=== PATIENT | male | born 1975 | race Native Hawaiian/Other Pacific Islander ===

== ENCOUNTER 2025-08-23 12:58 | Outpatient (AMB) | payer OTHER, SELFPAY ==
--- NOTE | 2025-08-23 13:03 | MHC.OFFVIS ---
Intake Visit Reasons: ENP- Neuropathic pain in both feet HPI Comments Details: The patient is a 50 year old individual presenting with a long-standing burning sensation in the hands and feet. The patient describes the sensation as annoying but not significantly painful. Previously, the patient was taking gabapentin, which was initially helpful, but its efficacy has diminished over the last few months. The dosage was increased to 300 mg, but the medication is no longer helping. The patient has a medical history of hypertension, for which the patient takes medication. The patient denies any history of diabetes, cancer, or alcohol use. Review of Systems Narrative - Neurological: Reports a chronic burning sensation in the hands and feet. - Cardiovascular: Reports a history of hypertension. - Endocrine: Denies a history of diabetes. - Social History: Denies alcohol use. - Oncologic: Denies a history of cancer. Physical Exam Neuro Other: Mental Status: Alert and oriented to person, place, and time. Normal attention. Normal spontaneous speech, fluency, and comprehension. No obvious issues with mood and memory. Affect is appropriate. Cranial Nerves: CN II: Visual caba full to confrontation, visual acuity intact. CN III, IV, : Pupils equal, round, reactive to light and accommodation. Extraocular movements are normal. CN V: Facial sensation is normal. CN VII: Facial movements symmetrical. CN VIII: Hearing intact to bedside conversation is normal. CN IX, X: Palate elevates symmetrically. CN XI: Shoulder shrug and head turn symmetrical. CN XII: Tongue midline without atrophy or fasciculations. Motor: Bulk and tone normal in all extremities. No significant muscle weakness in arms and legs. No drift. Reflexes: Deep tendon reflexes are trace and knees and absent in ankles with a flexor plantars Coordination: [id number] is okay. Gait and Station: No obvious gait abnormality. No ataxia or instability. Sensory: Vibratory sensation is present in toes but diminished and joint position sensation is diminished. Extrapyramidal: Full facial expressions and blinking. No rigidity. Movements are appropriate with no tremor or abnormality. Speech: Normal; no dysarthria or tremor. Assessment & Plan Assessment & Plan (1) Peripheral neuropathy: Comment: Meds tried: Gabapentin Code(s): G62.9 - Polyneuropathy, unspecified Category: Medical Qualifiers: Peripheral neuropathy type: polyneuropathy, unspecified Qualified Code(s): G62.9 - Polyneuropathy, unspecified Plan Impression: Chronic peripheral neuropathy Recommendations: 1. Try duloxetine 20 mg twice a day instead of gabapentin 2. Some laboratories to rule out treatable causes 3. EMG nerve conduction study right arm or leg for classification and grading of neuropathy 4. No alcohol use Orders: Orders NE nerve conduction velocity Today G6.9 - Polyneuropathy, unspecified NE electromyogram (EMG) Today G62.9 - Polyneuropathy, unspecified Immunofixation Pnl, Serum Today G6.9 - Polyneuropathy, unspecified Lyme IgG/IgM w/reflex to WB Today G62.9 - Polyneuropathy, unspecified Vitamin B12 and Folate Today G62.9 - Polyneuropathy, unspecified Medications: New duloxetine 20 mg PO BID 180 caps 0RF Coding Level of Care Code New Pt Level 3 (12399) Diagnoses Peripheral polyneuropathy G62.9 Peripheral neuropathy type: polyneuropathy, unspecified
--- OUTSIDE RECORDS SUMMARY | 2025-08-23 15:59 | XMS_ITS | Encounter Summary ---
Author Organization [facility] Address [address] [place] [address] Care Team Providers Care Pad Assembler Name Role Phone Ke Kimbrough MD Primary Care Pr ovider Encounter Details Date Type Department Care Team ([facility] Contact Info) Description 07/24/2025 Results Follow-Up Gastroenterology - [place] [address] [facility] [address] [facility] [address] [place] [id number] Dena Vila, [place] [address] [facility] [address] [place] [address] Social History Tobacco Use Types Packs/Day Years Used Date Smoking Tobacco: Every Day Cigarettes 0.5 30.9 Started: 09/28/1994 Smokeless Tobacco: Never Alcohol Use Standard Drinks/Week Comments No 0 (1 standard drink = 0.6 oz pur e alcohol) Housing Instability Answer Date Recorde d Are you worried that in the next 2 months you may not have stable housing? No 01/01/2025 Food Access & Nutrition Answer Date Rec orded Do you have access to a vari ety of food including fruits and vegetables? Yes 01/01/2025 Access to Healthcare Answer Date Record ed Within the last 3 months, ho w many times did you visit the emergency department for your medical care? 0 01/01/2025 Health Literacy Answer Date Recorded How often do you need to hav e someone help you when you read instructions, pamphlets, or other written material from your doctor or pharmacy? Sometimes 01/01/2025 Caregiver: How often do you need to have someone help you when you read instructions, pamphlets, or other written material from your doctor or pharmacy? Not on file 01/01/2025 Financial Risk Answer Date Recorded How hard is it for you to pa y for the very basics like food, housing, medical care, and air conditioning / heating? Not very hard 01/01/2025 Transportation Answer Date Recorded Has the lack of transportati on kept you from meetings, work, or from getting things needed for daily living? No Has the lack of transportati on kept you from medical appointments or from getting medications? No 01/01/2025 Social Isolation Answer Date Recorded How often do you feel lonely or isolated from th ose around you? Never 01/01/2025 Food Risk Answer Date Recorded Within the past 12 months we worried whether our food would run out before we got money to buy more. Never true 01/01/2025 Within the past 12 months th e food we bought just didn't last and we didn't have money to get more. Never true 01/01/2025 Dependent Care Answer Date Recorded Do you need help finding or paying for care for your loved ones. For example, child attendant or elderly care for an older adult? No 01/01/2025 Education Answer Date Recorded Do you think completing more education or training, like finishing a GED, going to college, or learning a trade, would be helpful for you? No 01/01/2025 Employment and Income Answer Date Recor ded During the last four weeks, have you been actively looking for work? No 01/01/2025 Living Situation Answer Date Recorded What is your living situation? Unrecognized valu e 01/01/2025 Interpersonal Safety Answer Date Record ed Physical Abuse Unrecognized value 03/01/2025 Verbal Abuse Unrecognized value 03/01/2025 Sex and Gender Information Value Date Recorded Sex Assigned at Male 04/13/2024 5:41 PM EDT Legal Sex Male 5:40 AM EST Gender Identity Male 04/13/2024 5:41 PM EDT Sexual Orientation Not on file documented as of this encounter Progress Notes * Diana Kingsley - 07/25/2025 10:56 AM EDT Patients spouse called back for results. * Anita Ochoa - 07/25/2025 8:33 AM EDT Pt is calling back documented in this encounter Plan of Treatment Upcoming Encounters Date Type Department Care Team (Late st Contact Info) Description 10/03/2025 1:00 PM EST Office Visit [facility] Hematology Oncology [address] [place] [address] May Vasquez PA [address] [place] [address] 10/12/2025 11:30 AM EST Office Visit Adult Medicine [address] [phone] Carlee Villar PA [address] [place] [address] documented as of this encounter Visit Diagnoses Not on filedocumented in this encounter Additional Health Concerns Assessment Noted Time PHQ-9 Depression Total Score: 0 01/02/20 25 8:27 PM EDT documented as of this encounter Care Teams Pad Assembler Relationship Specialty Start Date End Date Ke Kimbrough MD [address] [facility], [place] PCP - General Internal Medicine 05/16/22 documented as of this encounter
--- OUTSIDE RECORDS SUMMARY | 2025-08-23 15:59 | XMS_ITS | Clinical Summary ---
Author Organization [address] Address [address] [place] [address] Phone Care Team Providers Care [employer] Vice President Name Role Phone Ke Kimbrough MD Primary Care Pr ovider Allergies No known active allergies Medications CRANBERRY EXTRACT-VITAMIN C ORAL Take by mouth daily. Active multivitamin (DAILY VITAMIN ORAL) VITAMIN D OR Take by mouth daily. Active aspirin ([place]) 81 mg capsule Take by mouth daily. Active amLODIPine (NORVASC) 10 mg tabletIndications: Essential hypertension Take 1 tablet (10 mg total) by mouth at bedtime. 90 each 1 5 Active coenzyme Q-10 30 mg capsuleIndications :Mixed hyperlipidemia TAKE 1 CAPSULE BY MOUTH EVERYDAY AT BEDTIME 90 capsule 1 5 Active nicotine polacrilex (COMMIT) 2 mg lozengeIndications :Tobacco use disorder, mild, in early remission Dissolve 1 lozenge (2 mg total) in the mouth every 4 (four) hours if needed for smoking cessation. 360 lozenge 1 5 Active gabapentin (NEURONTIN) 100 mg capsuleIndications :Neuropathic pain of both feet Take with 300mg for total of 400mg daily 90 each 1 5 Active gabapentin (NEURONTIN) 300 mg capsuleIndications :Neuropathic pain of both feet Take 1 capsule (300 mg total) by mouth at bedtime. 90 capsule 1 5 Active rosuvastatin (CRESTOR) 5 mg tabletIndications: Mixed hyperlipidemia Take 1 tablet (5 mg total) by mouth at bedtime. 90 each 1 5 01/09/20 26 Active metoprolol succinate (TOPROL-XL) 25 mg 24 hr tabletIndications: Essential hypertension,Sinus tachycardia Take 1 tablet (25 mg total) by mouth 1 (one) time each day. Do not crush or chew. 90 each 1 5 01/09/20 26 Active tirzepatide, weight loss, (Zepbound) 2.5 mg/0.5 mL injectionIndicatio ns:Obesity (BMI 30.0-34.9) Inject 0.5 mL (2.5 mg total) under the skin every 7 (seven) days. 2 mL 5 08/11/20 25 Active Problems Problem Noted Date Diagnosed Date Neuropathic pain of both feet 07/12/2025 Assessment & Plan (07/12/2025 1:20 PM EDT): EMG testing is ordered for evaluation of the feet Will trial increased dose of gabapentin from 300 to 400 mg nightly Orders: EMG; Future gabapentin (NEURONTIN) 100 mg capsule; Take with 300mg for total of 400mg daily gabapentin (NEURONTIN) 300 mg capsule; Take 1 capsule (300 mg total) by mouth at bedtime. Elevated liver enzymes 02/07/2025 Sinus pause 01/17/2025 Sinus tachycardia 01/02/2025 Assessment & Plan (07/12/2025 1:20 PM EDT): Well-controlled. Heart rate today was 91. Continue metoprolol 25 mg daily Orders: metoprolol succinate (TOPROL-XL) 25 mg 24 hr tablet; Take 1 tablet (25 mg total) by mouth 1 (one) time each day. Do not crush or chew. Assessment & Plan (02/06/2025 11:35 AM EDT): Well-controlled. Continue metoprolol 25 mg daily Assessment & Plan (01/02/2025 2:40 PM EDT): Holter monitor results are as above. He is on metoprolol 25 mg daily which has been helpful for palpitations. Pending cardiology evaluation. Referral approval with information to schedule an appointment with cardiology was printed so he could call to make an appointment Heart burn 01/02/2025 Assessment & Plan (07/12/2025 1:20 PM EDT): No longer using omeprazole. Feels he doesn't need the medication. This was discontinued Assessment & Plan (01/02/2025 2:40 PM EDT): Discussed lifestyle modifications (e.g. weight loss, waiting 2-3 hrs after eating before going to bed, sleeping with head of bed elevated, stress reduction), dietary modifications (e.g. avoiding fatty foods, caffeine, chocolate, spicy foods, carbonated drinks and peppermint), avoid NSAIDs/ASA. Will check H. pylori testing. If negative. Will send omeprazole 20 mg to use as needed Orders: Helicobacter pylori breath test; Future Obesity (BMI 30.0-34.9) 10/31/2024 Assessment & Plan (07/12/2025 1:20 PM EDT): Counseled on the possible side effects of weight loss medication. Advised to make some dietary changes and to increase his exercise/start exercising. Will trial Zepbound weekly. He will contact his insurance to find out what medications are covered for obesity Follow-up in 3 months Orders: tirzepatide, weight loss, (Zepbound) 2.5 mg/0.5 mL injection; Inject 0.5 mL (2.5 mg total) under the skin every 7 (seven) days. Hepatic steatosis 04/28/2024 Assessment & Plan (07/12/2025 1:20 PM EDT): Following with GI. Advised to follow a Mediterranean diet Will benefit from weight loss Assessment & Plan (10/31/2024 1:47 PM EST): Continue to avoid alcohol and watch diet Vitamin D insufficiency 04/28/2024 Assessment & Plan (10/31/2024 1:47 PM EST): Continue vitamin D daily Orders: cholecalciferol (VITAMIN D-3) 50 mcg (2,000 unit) capsule; Take 1 capsule (2,000 Units total) by mouth 1 (one) time each day. Prediabetes 01/20/2023 Assessment & Plan (07/12/2025 1:20 PM EDT): Lifestyle counseling provided Orders: Hemoglobin A1c; Future Basic metabolic panel; Future Assessment & Plan (10/31/2024 1:47 PM EST): Due for labs which are ordered. Orders: Hemoglobin A1c; Future Comprehensive metabolic panel; Future Tobacco use disorder, mild, in early remission 0 01/19/2023 Assessment & Plan (07/12/2025 1:20 PM EDT): Continue with lozenges as needed Orders: nicotine polacrilex (COMMIT) 2 mg lozenge; Dissolve 1 lozenge (2 mg total) in the mouth every 4 (four) hours if needed for smoking cessation. Assessment & Plan (01/02/2025 2:40 PM EDT): Requesting refill of nicotine lozenge which he uses to help with cigarette cravings. With assistance Orders: nicotine polacrilex (COMMIT) 2 mg lozenge; Dissolve 1 lozenge (2 mg total) in the mouth every 4 (four) hours if needed for smoking cessation. Assessment & Plan (10/31/2024 1:47 PM EST): Switched from nicotine gum to nicotine lozenge per request Orders: nicotine polacrilex (COMMIT) 2 mg lozenge; Dissolve 1 lozenge (2 mg total) in the mouth every 4 (four) hours if needed for smoking cessation. Hyperlipidemia 07/22/2022 Assessment & Plan (07/12/2025 1:20 PM EDT): given the continued leg cramping even on the coenzyme Q 10, will decrease rosuvastatin from 10 mg to 5 mg nightly Orders: Lipid panel with reflex to direct LDL; Future Basic metabolic panel; Future rosuvastatin (CRESTOR) 5 mg tablet; Take 1 tablet (5 mg total) by mouth at bedtime. Assessment & Plan (02/06/2025 11:35 AM EDT): Stable. Continue Crestor Orders: rosuvastatin (CRESTOR) 10 mg tablet; Take 1 tablet (10 mg total) by mouth 1 (one) time each day. Assessment & Plan (10/31/2024 1:47 PM EST): Will switch from atorvastatin 20 mg nightly to Crestor 10 mg nightly to see if this helps with the side effects of temporary muscle cramping. He will take this medication with coenzyme Q 10. Orders: rosuvastatin (CRESTOR) 10 mg tablet; Take 1 tablet (10 mg total) by mouth 1 (one) time each day. coenzyme Q-10 30 mg capsule; Take 1 capsule (30 mg total) by mouth at bedtime. Kidney stones 05/10/2021 Assessment & Plan (07/12/2025 1:20 PM EDT): Continue follow-up with [facility] urology. Plan is for repeat renal ultrasound in 2 months Essential hypertension 09/06/2020 Assessment & Plan (07/12/2025 1:20 PM EDT): Well-controlled. Continue amlodipine 10 mg nightly Orders: Basic metabolic panel; Future metoprolol succinate (TOPROL-XL) 25 mg 24 hr tablet; Take 1 tablet (25 mg total) by mouth 1 (one) time each day. Do not crush or chew. Assessment & Plan (02/06/2025 11:35 AM EDT): Well-controlled. Continue amlodipine Orders: amLODIPine (NORVASC) 10 mg tablet; Take 1 tablet (10 mg total) by mouth at bedtime. Assessment & Plan (01/02/2025 2:40 PM EDT): Blood pressure is well-controlled. Continue amlodipine 10 mg daily and metoprolol 25 mg daily Orders: metoprolol succinate (TOPROL-XL) 25 mg 24 hr tablet; Take 1 tablet (25 mg total) by mouth 1 (one) time each day. Do not crush or chew. Assessment & Plan (10/31/2024 1:47 PM EST): Poorly controlled. Increase amlodipine to 10 mg nightly. Blood pressure monitor prescribed. He will bring blood pressure log with daily blood pressure readings to visit in 1 month for follow-up Orders: amLODIPine (NORVASC) 10 mg tablet; Take 1 tablet (10 mg total) by mouth at bedtime. Blood pressure monitor Encounters Date Type Department Care Team Description 07/24/2025 Results Follow-Up Gastroenterology - [place] [facility] [address] [place] [address] Dena Vila NP 07/12/2025 12:30 PM EDT Office Visit Adult [address] [phone] Ke Kimbrough MD Essential hypertension (Primary Dx); Mixed hyperlipidemia; Prediabetes; Sinus tachycardia; Obesity (BMI 30.0-34.9); Kidney stones; Heart burn; Neuropathic pain of both feet; Elevated ferritin; Hepatic steatosis; Other hydronephrosis; Tobacco use disorder, mild, in early remission 07/12/2025 Results Follow-Up Adult [address] [phone] Ke Kimbrough MD 07/11/2025 Lab Requisition [facility] - Main Lab [address] [facility] [place] [address] Gokul Broussard PA Calculus of kidney from Last 3 Months Immunizations Immunization Administration Dates Next Due Influenza Quadravalent, MDCK , 0.5ml, preservative free (Flucelvax) 6mo and older 07/31/2024 Influenza Quadravalent, MDCK , 0.5ml, with preservative (Flucelvax) 6mo and older 07/15/2023,07/16/2022,06/25/2021,2019 Influenza, Unspecified 07/14/2022 Tdap Tetanus diptheria acell ular pertussis (Boostrix; Adacel) 7yo and older 11/20/2019 Surgical History Surgery Date Site/Laterality Comments LITHOTRIPSY PROCEDURE: HISTORICAL LITHOTRIPSY Medical History Medical History Date Comments Kidney stones DX:Kidney stones HTN (hypertension) DX:HTN (hyper tension) Hyperlipidemia Family History Medical History Relation Name Comments Stroke Brother 1 htn Brother 1 Hypertension Father Stroke Father Nephrolithiasis Maternal Grandfather Hypertension Mother Relation Name Status Comments Brother 1 Alive Brother 2 Alive Brother 3 Alive Brother 4 Alive Father Alive Maternal Grandfather Maternal Grandmother Mother Alive Paternal Grandfather Paternal Grandmother Sister 1 Alive Sister 2 Alive Social History Tobacco Use Types Packs/Day Years Used Date Smoking Tobacco: Every Day Cigarettes 0.5 30.9 Started: 09/28/1994 Smokeless Tobacco: Never Tobacco Cessation:Ready to Q uit: Yes; Counseling Given: Yes Alcohol Use Standard Drinks/Week Comments No 0 [...] for your loved ones. For example, child caregiver private home or elderly care for an older adult? [...] PM EDT Sexual Orientation Not on file Obstetrics History Last Filed Vital Signs Vital Sign Reading Time Taken Comments Blood Pressure 126/67 07/12/2025 12:21 PM EDT Pulse 91 07/12/2025 12:21 PM EDT Temperature 36.9 C (98.4 F) 07/12/2025 12:21 PM EDT Respiratory Rate 15 07/12/2025 12:2 1 PM EDT Oxygen Saturation 97% 07/12/2025 12: 21 PM EDT Inhaled Oxygen Concentration - - Weight 98.3 kg (216 lb 12.8 oz) 025 12:21 PM EDT Height 172.7 cm (5' 8 ) 07/12/2025 12:2 1 PM EDT Body Mass Index 32.96 07/12/2025 12:21 PM EDT Plan of Treatment Upcoming Encounters Date Type Department Care Team (Late st Contact Info) Description 10/03/2025 1:00 PM EST Office Visit [facility] Hematology Oncology [address] [place] [phone] May Vasquez PA [address] [place] [address] 10/12/2025 11:30 AM EST Office Visit Adult Medicine [address] [phone] Carlee Villar PA [address] [place] [address] Health Maintenance Due Date Last Done Comments Pneumococcal Vaccine: 50+ Years (1 of 2 - PCV) 1994 HIV Screening 09/06/2022 Zoster Vaccines (1 of 2) 2025 COVID-19 Vaccine ( - season) 2025 09/16/2021, 03/05/2021, 02/05/2021 Social Influencers of Health Screening 01/01/2026 01/01/2025 Hypertension/CHF/CAD Annual BMP Blood Test 07/21/2026 07/21/2025, 02/06/2025, 01/24/2025, Additional history exists DTaP,Tdap,and Td Vaccines (2 - Td or Tdap) 11/20/2029 11/20/2019 Colorectal Cancer Screening: Colonoscopy 03/01/2030 03/01/2025 Cholesterol Screening (Lipid Panel) 07/12/2030 07/12/2025, 04/27/2024, 04/27/2024 RSV Immunization Adult Patients (1 - 1-dose 75+ series) 2050 Depression Screening Completed 01/01/2025 Hepatitis C Screening Completed 04/11/2025, 024 Influenza Vaccine Completed 07/01/2025, , 07/31/2024, Additional history exists HIB Vaccines Aged Out No longer eligi ble based on patient's age to complete this topic HPV Vaccines Aged Out No longer eligi ble based on patient's age to complete this topic Hepatitis A Vaccines Discontinued Hepatitis B Vaccines Discontinued IPV Vaccines Aged Out No longer eligi ble based on patient's age to complete this topic MMR Vaccines Aged Out No longer eligi ble based on patient's age to complete this topic Meningococcal ACWY Vaccine Aged Out N o longer eligible based on patient's age to complete this topic Meningococcal B Vaccine Aged Out No l onger eligible based on patient's age to complete this topic RSV Immunization Patients Under 20 months Aged Out No longer eligible based on patient's age to complete this topic Varicella Vaccines Aged Out No longer eligible based on patient's age to complete this topic Procedures Procedure Name Priority Date/Time Associated Diagnosis Comments BASIC METABOLIC PANEL Routine 07/21/2025 8:27 AM EDT Essential hypertension Mixed hyperlipidemia Prediabetes HEPATIC FUNCTION PANEL Routine 8:27 AM EDT Elevated liver enzymes HEMOCHROMATOSIS MUTATION Routine 07/12/2025 1:23 PM EDT Elevated liver enzymes Elevated ferritin HEMOGLOBIN A1C Routine 07/12/2025 1:23 PM EDT Prediabetes LIPID PANEL WITH REFLEX TO DIRECT LDL Routine 07/12/2025 1:23 PM EDT Mixed hyperlipidemia FERRITIN Routine 07/12/2025 1:23 PM EDT Elevated ferritin STONE ANALYSIS Routine 07/11/2025 12:00 AM EDT Calculus of kidney HEPATITIS C ANTIBODY Routine 04/11/2025 10:51 AM EDT Elevated liver enzymes Hepatic steatosis COLONOSCOPY Routine 03/01/2025 12:29 PM EDT Colon cancer screening from Last 3 Months or Most Recently Relevant to Health Maintenance Results * (ABNORMAL) Hepatic function panel (07/21/2025 8:27 AM EDT) Total Protein 7.4 6.0 - 8.0 g/dL LAB CHEMISTRY METHOD 07/21/2025 11:01 AM EDT [facility] Albumin 4.3 3.2 - 5.0 g/dL LAB CHEMISTRY METHOD 07/21/2025 11:01 AM EDT [facility] Total Bilirubin 1.4 0.0 - 1.4 mg/dL LAB CHEMISTRY METHOD 07/21/2025 11:01 AM [facility] Bilirubin, Direct 0.4(H) 0.0 - 0.3 mg/dL LAB CHEMISTRY METHOD 07/21/2025 11:01 AM [facility] Bilirubin, Indirect 1.0 0.0 - 1.1 mg/dL LAB CHEMISTRY METHOD 07/21/2025 11:01 AM [facility] ALT (SGPT) 74(H) 10 - 60 unit/L LAB CHEMISTRY METHOD 07/21/2025 11:01 AM [facility] AST (SGOT) 36 10 - 42 unit/L LAB CHEMISTRY METHOD 07/21/2025 11:01 AM [facility] Alkaline Phosphatase 104 42 - 121 unit/L LAB CHEMISTRY METHOD 07/21/2025 11:01 AM [facility] Blood Venous blood specimen / Unknown Venipuncture / Unknown 07/21/2025 8:27 AM EDT 07/21/2025 8:27 AM EDT us Dena Vila NP LAB BLOOD ORDERABLES Final Resu lt [facility] [address] [place] [address], * Basic metabolic panel (07/21/2025 8:27 AM EDT) Sodium 137 133 - 145 mmol/L LAB CHEMISTRY METHOD 07/21/2025 10:51 AM [facility] Potassium 4.4 3.5 - 5.5 mmol/L LAB CHEMISTRY METHOD 07/21/2025 10:51 AM [facility] Chloride 104 96 - 110 mmol/L LAB CHEMISTRY METHOD 07/21/2025 10:51 AM [facility] CO2 28 21 - 32 mmol/L LAB CHEMISTRY METHOD 07/21/2025 10:51 AM [facility] Anion Gap 5 3 - 11 LAB CHEMISTRY METHOD 07/21/2025 10:51 AM [facility] Glucose 100 70 - 100 mg/dL LAB CHEMISTRY METHOD 07/21/2025 10:51 AM [facility] BUN 12 5 - 25 mg/dL LAB CHEMISTRY METHOD 07/21/2025 10:51 AM [facility] Creatinine 1.03 0.70 - 1.30 mg/dL LAB CHEMISTRY METHOD 07/21/2025 10:51 AM [facility] eGFR 88 >=60 mL/min/1. 73m2 LAB CHEMISTRY METHOD 07/21/2025 10:51 AM [facility] Comment:Calculation based on the Chronic Kidney Disease Epidemiology Collaboration (CKD-EPI) equation refit without adjustment for race. BUN/Creatinine Ratio 11.7 LAB CHEMISTRY METHOD 07/21/2025 10:51 AM [facility] Calcium 9.5 8.5 - 10.5 mg/dL LAB CHEMISTRY METHOD 07/21/2025 10:51 AM [facility] Blood Venous blood specimen / Unknown Venipuncture / Unknown 07/21/2025 8:27 AM EDT 07/21/2025 8:27 AM EDT us Ke Kimbrough MD LAB BLOOD ORDERA BLES Final Result [facility] [address] [place] [address], * Lipid panel with reflex to direct LDL (07/12/2025 1:23 PM EDT) Cholesterol 126 0 - 200 mg/dL LAB CHEMISTRY METHOD 07/12/2025 4:33 PM EDT [facility] Triglycerides 82 0 - 150 mg/dL LAB CHEMISTRY METHOD 07/12/2025 4:33 PM EDT [facility] HDL 75 >=40 mg/dL LAB CHEMISTRY METHOD 07/12/2025 4:33 PM EDT [facility] LDL Calculated 35 0 - 100 mg/dL LAB CHEMISTRY METHOD 07/12/2025 4:33 PM EDT [facility] Comment:Estimated LDL Calcul ated using equation: Total cholesterol - HDL cholesterol - (Triglycerides/5) VLDL Cholesterol Huey 16.4 mg/dL LAB CHEMISTRY METHOD 07/12/2025 4:33 PM EDT [facility] Non HDL Chol. (LDL+VLDL) 51 <145 mg/dL LAB CHEMISTRY METHOD 07/12/2025 4:33 PM EDT [facility] Chol/HDL Ratio 1.7 0.0 - 4.4 LAB CHEMISTRY METHOD 07/12/2025 4:33 PM EDT [facility] Blood Venous blood specimen / Unknown Venipuncture / Unknown 07/12/2025 1:23 PM EDT 07/12/2025 1:23 PM EDT Ke Kimbrough MD LAB BLOOD ORDERA BLES Final Result [facility] [address] [place] [address], * Hemochromatosis mutation (07/12/2025 1:23 PM EDT) Hereditary Hemochromatosis See Below 07/23/2025 4:36 AM EDT [facility] Comment: RESULT: NEGATIVE Interpretation: DNA testing indicates that this individual is negative for the C282Y and H63D pathogenic variants in the HFE gene. This negative result significantly reduces the likelihood of hereditary hemochromatosis (HH) in this individual. However, it does not rule out the presence of other pathogenic variants within the HFE gene or a diagnosis of HH. The risk of this individual to carry an HFE pathogenic variant other than those tested in this assay depends greatly on family and clinical history as well as ethnicity. This assay does not test for other primary or secondary iron overload disorders. Laboratory results and submitted clinical information reviewed by Alysha Love, PhD, [facility]. DETAILED ASSAY INFORMATION: Hereditary hemochromatosis (HH) is an autosomal recessive disorder of iron metabolism that can result in iron overload and potential organ failure. It is one of the most common genetic disorders in individuals of - ancestry, with an estimated carrier frequency of 10%. HH is caused by pathogenic variants in the HFE gene. Most individuals with HH (60-90%) are homozygous for the C282Y pathogenic variant. A smaller percentage of affected individuals are either compound heterozygous for the C282Y and H63D pathogenic variants (3%-8%), or homozygous for the H63D pathogenic variant (approximately 1%). METHODOLOGY: This assay detects two pathogenic variants in the HFE gene, C282Y (NM 784194.2: c.845G>A, p.Asv583Gcg) and H63D (NM 324065.2: c.187C>G, p.Axq70Nfe), that are commonly associated with HH. These variants are detected by multiplex-polymerase chain reaction (PCR) amplification, followed by restriction enzyme digestion and capillary electrophoresis. LIMITATIONS: This assay does not detect other pathogenic variants in the HFE gene that may be associated with HH. Although rare, false positive or false negative results may occur. All results should be interpreted in the context of clinical findings, relevant history, and other laboratory data. Health care providers, please contact your local [email or web address] genetic counselor or call [phone] ( ) for assistance with the interpretation of these results. This test was developed and its analytical performance characteristics have been determined by [email or web address]. It has not been cleared or approved by FDA. This assay has been validated pursuant to the CLIA regulations and is used for clinical purposes. For more information, please refer to http://education.Si[employer].Simplificare/faq/hemochromatosis. (This link is being provided for informational/educational purposes only.) A portion of the testing was performed at [facility]. Reviewed and signed by Laboratory results and submitted clinical information reviewed by Alysha Love, PhD, [facility], Signed on 07/22/2025 at 23:46 Test Performed at: [email or web address] [address] [phone] Corrina Jj MD, PhD, [facility] Blood Venous blood specimen / Unknown Venipuncture / Unknown 07/12/2025 1:23 PM EDT 07/12/2025 1:23 PM EDT Dena Vila NP LAB MOLECULAR DIAGNOSTICS ORDER REMA Final Result [facility] [address] [place] [address] * Hemoglobin A1c (07/12/2025 1:23 PM EDT) Hemoglobin A1C 6.0 <6.5 % LAB CHEMISTRY METHOD 07/12/2025 8:33 PM EDT [facility] Mean Bld Glu Estim. 126 mg/dL LAB CHEMISTRY METHOD 07/12/2025 8:33 PM EDT [facility] Blood Venous blood specimen / Unknown Venipuncture / Unknown 07/12/2025 1:23 PM EDT 07/12/2025 1:23 PM EDT Ke Kimbrough MD LAB BLOOD ORDERA BLES Final Result [facility] [address] [place] [address], * (ABNORMAL) Ferritin (07/12/2025 1:23 PM EDT) Ferritin 677(H) 26 - 388 ng/mL LAB CHEMISTRY METHOD 07/12/2025 4:33 PM EDT [facility] Blood Venous blood specimen / Unknown Venipuncture / Unknown 07/12/2025 1:23 PM EDT 07/12/2025 1:23 PM EDT Ke Kimbrough MD LAB BLOOD ORDERA BLES Final Result Performing Organization Address City/[facility]/ZIP Co de Phone Number [facility] [address] [place] [address], [place] [phone] * Stone analysis (07/11/2025 12:00 AM EDT) Component(s) See below 07/17/2025 10:16 PM EDT [facility] Comment: 30% Calcium oxalate monohydrate (Whewellite) 70% Calcium oxalate dihydrate (Weddellite) Stone Weight 0.0445 g 07/17/2025 10:16 PM EDT [facility] Comment: This test was developed and its performance characteristics determined by [facility] in a manner consistent with CLIA requirements. This test has not been cleared or approved by the U.S. Food and Drug Administration. Test performed at [facility], [address], [place] [address] Lisbeth Toure MD, PhD - Bilingual Rec[employer]iter Calculus 07/11/2025 07/11/2025 2:5 8 PM EDT [facility] BODY FLUIDS AND S TOOLS ORDERABLES Final Result Performing Organization Address City/[facility]/ZIP Co de Phone Number [facility] [address] [place] [address] * Hepatitis C antibody (04/11/2025 10:51 AM EDT) Hepatitis C Antibody Negative Negative LAB CHEMISTRY METHOD 04/11/2025 6:58 PM EDT [facility] Blood Venous blood specimen / Unknown Venipuncture / Unknown 04/11/2025 10:51 AM EDT 04/11/2025 10:51 AM EDT Dena Vila DATABASE ENGINEER LAB BLOOD ORDERABLES Final Resu lt [facility] [address] [place] [address], * COLONOSCOPY Anesthesia - MAC; [facility] ENDOSCOPY (03/01/2025 12:29 PM EDT) Anatomical Region Laterality Modality Endoscopy 03/01/2025 12:1 0 PM EDT Impressions 03/01/2025 12:30 PM EDT - Three diminutive polyps in the transverse colon, removed with a jumbo cold forceps. Resected and retrieved. - The examination was otherwise normal on direct and retroflexion views. Recommendation: - Discharge patient to home. - Await pathology results. - Repeat colonoscopy in 5 years for surveillance. Narrative 03/01/2025 12:30 PM EDT [facility] Patient Name: Yossi Torres Procedure Date: 03/01/2025 12:10 PM Date of : 1975 Age: 50 Gender: Male Note Status: Finalized Attending MD: Giuliana Flowers MD, Procedure Date No Time: 03/01/2025 Procedure: Colonoscopy Indications: Screening for colorectal malignant neoplasm Providers: Giuliana Flowers MD Referring MD: Jeffrey Arzate DO Medicines: Monitored Anesthesia Care Complications: No immediate complications. Estimated blood loss: Minimal. Estimated Blood Loss: Estimated blood loss was minimal. Procedure: Pre-Anesthesia Assessment: - Prior to the procedure, a History and Physical was performed, and patient medications and allergies were reviewed. The patient is competent. The risks and benefits of the procedure and the sedation options and risks were discussed with the patient. All questions were answered and informed consent was obtained. Patient identification and proposed procedure were verified by the physician, the nurse, the asian studies program chair and the photocopier technician in the pre-procedure area in the endoscopy suite. Mental Status Examination: alert and oriented. Airway Examination: normal oropharyngeal airway and neck mobility. Respiratory Examination: clear to auscultation. CV Examination: normal. Prophylactic Antibiotics: The patient does not require prophylactic antibiotics. Prior Anticoagulants: The patient has taken no anticoagulant or antiplatelet agents. ASA Grade Assessment: III - A patient with severe systemic disease. After reviewing the risks and benefits, the patient was deemed in satisfactory condition to undergo the procedure. The anesthesia plan was to use monitored anesthesia care (MAC). Immediately prior to administration of medications, the patient was re-assessed for adequacy to receive sedatives. The heart rate, respiratory rate, oxygen saturations, blood pressure, adequacy of pulmonary ventilation, and response to care were monitored throughout the procedure. The physical status of the patient was re-assessed after the procedure. After I obtained informed consent, the scope was passed under direct vision. Throughout the procedure, the patient's blood pressure, pulse, and oxygen saturations were monitored continuously. The Olympus Colonoscope was introduced through the anus and advanced to the cecum, identified by appendiceal orifice and ileocecal valve. Findings: The perianal and digital rectal examinations were normal. Three sessile polyps were found in the transverse colon. The polyps were diminutive in size. These polyps were removed with a jumbo cold forceps. Resection and retrieval were complete. Estimated blood loss was minimal. The exam was otherwise without abnormality on direct and retroflexion views. Procedure Code(s): --- Professional --- 03485, Colonoscopy, flexible; with biopsy, single or multiple Diagnosis Code(s): --- Professional --- D12.3, Benign neoplasm of transverse colon (hepatic flexure or splenic flexure) CPT copyright 2020 [employer]. All rights reserved. The codes documented in this report are preliminary and upon hcc coders review may be revised to meet current compliance requirements. Giuliana Flowers MD 03/01/2025 12:30:36 PM This report has been signed electronically.Giuliana Flowers MD Number of Addenda: 0 Note Initiated On: 03/01/2025 12:10 PM Scope Withdrawal Time: 0 hours 11 minutes 54 seconds Scope In: 12:14:27 PM Scope Out: 12:28:24 PM Endoscopy Department at [facility] - [address] [place] [id number] Procedure Note Giuliana Flowers MD - 03/01/2025 [facility] Patient Name: Yossi Torres Procedure Date: 03/01/2025 12:10 PM Date of : 1975 Age: 50 Gender: Male Note Status: Finalized Attending MD: Giuliana Flowers MD, Procedure Date No Time: 03/01/2025 Procedure: Colonoscopy Indications: Screening for colorectal malignant neoplasm Providers: Giuliana Flowers MD Referring MD: Jeffrey Arzate DO Medicines: Monitored Anesthesia Care Complications: No immediate complications. Estimated blood loss: Minimal. Estimated Blood Loss: Estimated blood loss was minimal. Procedure: Pre-Anesthesia Assessment: - Prior to the procedure, a History and Physicalwas performed, and patient medications and allergieswere reviewed. The patient is competent. The risks and benefits of the procedure and the sedation optionsand risks were discussed with the patient. Allquestions were answered and informed consent was obtained. Patient identification and proposed procedure were verified by the physician, the nurse, theanesthetist and the photocopier technician in the pre-procedure area in the endoscopy suite. Mental Status Examination: alertand oriented. Airway Examination: normal oropharyngeal airway and neck mobility. Respiratory Examination: clear to auscultation. CV Examination: normal. Prophylactic Antibiotics: The patient does notrequire prophylactic antibiotics. Prior Anticoagulants: The patient has taken no anticoagulant or antiplatelet agents. ASA Grade Assessment: III - A patient with severe systemic disease. After reviewing the risksand benefits, the patient was deemed in satisfactory condition to undergo the procedure. The anesthesia plan was to use monitored anesthesia care (MAC). Immediately prior to administration of medications, the patient was re-assessed for adequacy to receive sedatives. The heart rate, respiratory rate, oxygen saturations, blood pressure, adequacy of pulmonary ventilation, and response to care were monitored throughout the procedure. The physical status ofthe patient was re-assessed after the procedure. After I obtained informed consent, the scope was passed under direct vision. Throughout theprocedure, the patient's blood pressure, pulse, and oxygen saturations were monitored continuously. TheOlympus Colonoscope was introduced through the anus and advanced to the cecum, identified by appendiceal orifice and ileocecal valve. Findings: The perianal and digital rectal examinations were normal. Three sessile polyps were found in the transverse colon. The polyps were diminutive in size. These polyps were removed with a jumbo cold forceps. Resection and retrieval were complete. Estimatedblood loss was minimal. The exam was otherwise without abnormality ondirect and retroflexion views. Procedure Code(s): --- Professional --- 07687, Colonoscopy, flexible; with biopsy, singleor multiple Diagnosis Code(s): --- Professional --- D12.3, Benign neoplasm of transverse colon (hepatic flexure or splenic flexure) CPT copyright 2020 [employer]. All rights reserved. The codes documented in this report are preliminary and upon hcc coders reviewmay be revised to meet current compliance requirements. Giuliana Flowers MD 03/01/2025 12:30:36 PM This report has been signed electronically.Giuliana Flowers MD Number of Addenda: 0 Note Initiated On: 03/01/2025 12:10 PM Scope Withdrawal Time: 0 hours 11 minutes 54 seconds Scope In: 12:14:27 PM Scope Out: 12:28:24 PM Endoscopy Department at [facility] - [address] [place] [id number] IMPRESSION: - Three diminutive polyps in the transverse colon, removed with a jumbo cold forceps. Resected and retrieved. - The examination was otherwise normal on directand retroflexion views. Recommendation: - Discharge patient to home. - Await pathology results. - Repeat colonoscopy in 5 years for surveillance. Jeffrey Arzate DO GI~PROCEDURE ORDERABLES Final Re sult from Last 3 Months or Most Recently Relevant to Health Maintenance Insurance [employer] Advance Directives * Full Code - Default (Latest Code Status on File) Date Activated Date Inactivated Comments 03/01/2025 12:56 PM 03/05/2025 3:18 AM This is order is used when code status has not been discussed with the patient, or code status is otherwise unknown/unconfirmed To update the patient's code status, place a code status order. Do not modify or discontinue any currently active code status orders. Care Teams Fixed Income Trading Vice President Relationship Specialty Start Date End Date Ke Kimbrough MD [address] [facility], [place] PCP - General Internal Medicine 05/16/22
--- OUTSIDE RECORDS SUMMARY | 2025-08-23 15:59 | XMS_ITS | Encounter Summary ---
Author Organization [facility] Address [address] [place] [address] Care Team Providers Care Custody Officer Name Role Phone Ke Kimbrough MD Primary Care Pr ovider Encounter Details Date Type Department Care Team (Late st Contact Info) Description 07/11/2025 Lab Requisition [facility] - Main Lab [address] [facility] [place] [address] Gokul Broussard, JERAMY [address] [place] [phone] Calculus of kidney Social History Tobacco Use Types Packs/Day Years [...] for your loved ones. For example, child life therapist or elderly care for an older adult? [...] on file documented as of this encounter Plan of Treatment Upcoming Encounters Date Type Department Care Team (Late st Contact Info) Description 10/03/2025 1:00 PM EST Office Visit [facility] Hematology Oncology [address] [place] [address] May Vasquez PA [address] [place] [address] 10/12/2025 11:30 AM EST Office Visit Adult Medicine [address] [phone] Carlee Villar PA [address] [place] [address] documented as of this encounter Procedures Procedure Name Priority Date/Time Associated Diagnosis Comments STONE ANALYSIS Routine 07/11/2025 12:00 AM EDT Calculus of kidney documented in this encounter Results * Stone analysis (07/11/2025 12:00 AM EDT) Component(s) See below 07/17/2025 10:16 PM EDT [facility] Comment: 30% Calcium oxalate monohydrate (Whewellite) 70% Calcium oxalate dihydrate (Weddellite) Stone Weight 0.0445 g 07/17/2025 10:16 PM EDT [facility] Comment: This test was developed and its performance characteristics determined by [facility] in a manner consistent with CLIA requirements. This test has not been cleared or approved by the U.S. Food and Drug Administration. Test performed at [facility], [address] , [place], [place] [id number] Lisbeth Toure MD, PhD - Parquetry Layer Calculus 07/11/2025 07/11/2025 2:5 8 PM EDT us [facility] BODY FLUIDS AND S TOOLS ORDERABLES Final Result [facility] [address] [place], [place] [id number] documented in this encounter Visit Diagnoses Diagnosis Calculus of kidney documented in this encounter Additional Health Concerns Assessment Noted Time PHQ-9 Depression Total Score: 0 01/02/20 25 8:27 PM EDT documented as of this encounter Care Teams Custody Officer Relationship Specialty Start Date End Date Ke Kimbrough MD [address] [place] [address] [place] [address] PCP - General Internal Medicine 05/16/22 documented as of this encounter
--- OUTSIDE RECORDS SUMMARY | 2025-08-23 16:00 | XMS_ITS | Encounter Summary ---
Author Organization [facility] Address [address] [place] [address] Care Team Providers Care Hair Or Beauty Salon Assistant Name Role Phone Ke Kimbrough MD Primary Care Pr ovider Encounter Details Date Type Department Care Team (Late st Contact Info) Description 07/12/2025 Results Follow-Up Adult Medicine [address] [phone] Ke Kimbrough MD [address] [place], [place] Social History Tobacco Use Types Packs/Day Years [...] care for your loved ones. For example, early childhood education coordinator or elderly care for an older adult? [...] 10/03/2025 1:00 PM EST Office Visit [facility] Hematology Oncology [address] [place] [address] May Vasquez PA [address] [place] [address] 10/12/2025 11:30 AM EST Office Visit Adult Medicine [address] [phone] Carlee Villar PA [address] [place] [address] documented as of this encounter Visit Diagnoses Not on filedocumented in this encounter Additional Health Concerns Assessment Noted Time PHQ-9 Depression Total Score: 0 01/02/20 25 8:27 PM EDT documented as of this encounter Care Teams Hair Or Beauty Salon Assistant Relationship Specialty Start Date End Date Ke Kimbrough MD [address] [facility], [place] PCP - General Internal Medicine 05/16/22 documented as of this encounter
== END 2025-08-23 13:26 | disposition home or self-care (01) ==
PROVIDERS: PCP Family Medicine; Visit Provider Psychiatry & Neurology Neurology
DX: G62.9 Polyneuropathy, unspecified (principal)
CPT/HCPCS: 99203

== ENCOUNTER 2025-08-23 12:58 | Outpatient (REF) | payer OTHER, SELFPAY ==
[2025-08-23 15:30] LABS: Vitamin B12 534 pg/mL (200-900)
[2025-08-23 16:03] LABS: Folate 8.3 ng/mL (> or = 4.0)
[2025-08-25 19:13] LABS: Lyme Abs Screen <0.90 index
== END 2025-08-23 12:59 | disposition home or self-care (01) ==
LOC: HO.LAB 12:58
PROVIDERS: PCP Family Medicine; Visit Provider Psychiatry & Neurology Neurology
DX: G62.9 Polyneuropathy, unspecified (principal); Z01.84 Encounter for antibody response examination
CPT/HCPCS: 36415; 82607; 82746; 82784; 86334; 86617; 86618

== ENCOUNTER 2025-09-12 13:39 | Outpatient (REF) | payer OTHER, SELFPAY ==
--- NOTE | 2025-09-12 14:09 | EMG_ITS ---
Chief complaint: Polyneuropathy Referred by:?Dr Botello Procedure done: Right upper and right lower extremities NCS/EMG Right median and ulnar motor studies were performed. Right tibial and peroneal motor studies were performed with F responses and tibial H-reflex. Right median and ulnar mixed sensory, superficial peroneal and sural sensory, and radial sensory studies were performed. Right median and lateral antecubital brachial sensory studies were also performed. Paraspinal muscles were tested with a needle. Findings: Motor studies did not reveal any significant abnormality. Median and ulnar mixed sensory studies, ortho digit sensory studies, radial study was normal. Superficial peroneal and sural studies were also normal. Antecubital brachial studies were normal. Right lateral mixed plantars study was absent while lift amplitude was diminished. Impression: No significant abnormality noted in right upper extremity. 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 Otherwise no significant abnormality noted. [place] [address] 2 extremities MTDD
--- OUTSIDE RECORDS SUMMARY | 2025-09-12 17:42 | XMS_ITS | Encounter Summary ---
Author Organization [facility] Address [address] [place] [address] Care Team Providers Care Wildlife Management Professor Name Role Phone Ke Kimbrough MD Primary Care Pr ovider Encounter Details Date Type Department Care Team (Late st Contact Info) Description 08/30/2025 Lab Requisition [facility] - Main Lab [address] [facility] [place] [address] Gokul Broussard, JERAMY [address] [place] [phone] Benign essential microscopic hematuria Social History Tobacco Use Types Packs/Day Years Used Date Smoking Tobacco: Every Day Cigarettes 0.5 31 Started: 09/28/1994 Smokeless Tobacco: Never Alcohol Use [...] for your loved ones. For example, child care cook or elderly care for an older adult? [...] Description 10/03/2025 1:00 PM EST Office Visit [facility] Hematology Oncology [address] [place] [address] May Vasquez PA [address] [facility] [place] [address] 10/12/2025 11:30 AM EST Office Visit [address] [phone] Carlee Villar PA [address] [place] [address] documented as of this encounter Procedures Procedure Name Priority Date/Time Associated Diagnosis Comments NON-GYNECOLOGIC CYTOLOGY Routine 08/29/2025 12:00 AM EST Benign essential microscopic hematuria documented in this encounter Results * Non-gynecologic cytology (08/29/2025 12:00 AM EST) Final Diagnosis A. Urine, Voided, ([id number]): Atypical urothelial cells. Note: Based upon the cytologic findings, UroVysion testing will be performed, the result to follow in an addendum. 09/11/2025 1:14 PM [facility] at 1313 EST Specimen A Adequacy Satisfactory for evaluation 09/11/2025 1:14 PM [facility] Clinical Information Benign essential microscopic hematuria R31.1 Urine cytology with reflex UroVysion (AUC/GUC) 09/11/2025 1:14 PM [facility] Gross Description A. Urine, Voided, ([id number]): Received is one ThinPrep slide for cytology. 09/11/2025 1:14 PM [facility] Disclaimer Unless otherwise specified, all tissue is 10% NB formalin fixed and paraffin embedded. Technical pathology services provided by [facility] at [address], [place] [address] (CLIA #[id number]/Roberto Duran MD, Business Continuity Planner) 09/11/2025 1:14 PM [facility] Urine Urine specimen from urethra / Unknown 08/29/2025 08/30/2025 1:35 PM EST us [facility] CYTOLOGY ORDERABL ES Final Result [facility] [address] [place] [address], documented in this encounter Visit Diagnoses Diagnosis Benign essential microscopic hematuria documented in this encounter Additional Health Concerns Assessment Noted Time PHQ-9 Depression Total Score: 0 01/02/20 25 8:27 PM EDT documented as of this encounter Care Teams Wildlife Management Professor Relationship Specialty Start Date End Date Ke Kimbrough MD [address] [place], [place] PCP - General Internal Medicine 05/16/22 documented as of this encounter
--- OUTSIDE RECORDS SUMMARY | 2025-09-12 17:42 | XMS_ITS | Clinical Summary ---
Author Organization [facility] [address] [place] [address] Address [address] [facility] [place] Phone Care Team Providers Care County Demonstrator Name Role Phone Ke Kimbrough MD Primary Care Pr ovider Allergies No known active allergies Medications CRANBERRY EXTRACT-VITAMIN C ORAL Take by mouth daily. Active multivitamin (DAILY VITAMIN ORAL) VITAMIN D OR Take by mouth daily. Active aspirin (Vazalore) 81 mg capsule Take by mouth daily. Active amLODIPine (NORVASC) 10 mg tabletIndications:E ssential hypertension Take 1 tablet (10 mg total) by mouth at bedtime. 90 each 1 5 Active coenzyme Q-10 30 mg capsuleIndications: Mixed hyperlipidemia TAKE 1 CAPSULE BY MOUTH EVERYDAY AT BEDTIME 90 capsule 1 5 Active nicotine polacrilex (COMMIT) 2 mg lozengeIndications: Tobacco use disorder, mild, in early remission Dissolve 1 lozenge (2 mg total) in the mouth every 4 (four) hours if needed for smoking cessation. 360 lozenge 1 5 Active gabapentin (NEURONTIN) 100 mg capsuleIndications: Neuropathic pain of both feet Take with 300mg for total of 400mg daily 90 each 1 5 Active gabapentin (NEURONTIN) 300 mg capsuleIndications: Neuropathic pain of both feet Take 1 capsule (300 mg total) by mouth at bedtime. 90 capsule 1 5 Active rosuvastatin (CRESTOR) 5 mg tabletIndications:M ixed hyperlipidemia Take 1 tablet (5 mg total) by mouth at bedtime. 90 each 1 5 01/09/20 26 Active metoprolol succinate (TOPROL-XL) 25 mg 24 hr tabletIndications:E ssential hypertension,Sinus tachycardia Take 1 tablet (25 mg total) by mouth 1 (one) time each day. Do not crush or chew. 90 each 1 5 01/09/20 26 Active Active Problems Problem Noted Date Diagnosed Date [...] (07/12/2025 1:20 PM EDT): Continue follow-up with [facility] urology. Plan is for repeat renal ultrasound [...] Encounters Date Type Department Care Team Description 08/30/2025 Lab Requisition [facility] [address] [place] [address] Gokul Broussard PA Benign essential microscopic hematuria 07/24/2025 Results Follow-Up Gastroenterology - [place] [address] [facility] [address] [facility] [address] [place] [address] Dena Vila NP 07/12/2025 12:30 PM EDT Office Visit Adult [facility] [address] [place], [place] [phone] Ke Kimbrough MD Essential hypertension (Primary Dx); Mixed hyperlipidemia; Prediabetes; Sinus tachycardia; Obesity (BMI 30.0-34.9); Kidney stones; Heart burn; Neuropathic pain of both feet; Elevated ferritin; Hepatic steatosis; Other hydronephrosis; Tobacco use disorder, mild, in early remission 07/12/2025 Results Follow-Up Adult Medicine [facility] [address] [place] [phone] Ke Kimbrough MD 07/11/2025 Lab Requisition [facility] [address] [place] [address] Gokul Broussard PA Calculus of [...] 0.5 31 Started: 09/28/1994 Smokeless Tobacco: Never Tobacco Cessation:Ready [...] your loved ones. For example, child care giver or elderly care for an older adult? [...] PM EDT Sexual Orientation Not on file Last Filed Vital Signs Vital Sign Reading [...] Description 10/03/2025 1:00 PM EST Office Visit [facility] Hematology Oncology [address] [place] [address] May Vasquez PA [address] [place] [address] 10/12/2025 11:30 AM EST Office Visit Adult Medicine [address] [phone] Carlee Villar PA [address] [place] [address] Health Maintenance Due Date Last Done Comments Pneumococcal Vaccine: 50+ Years (1 of 2 - PCV) 1994 HIV Screening 09/06/2022 Zoster Vaccines (1 of 2) 2025 COVID-19 Vaccine ( - 2024- season) 2025 09/16/2021, 03/05/2021, 02/05/2021 Social Influencers [...] 12:00 AM EST Benign essential microscopic hematuria BASIC METABOLIC PANEL Routine 07/21/2025 8:27 AM [...] Recently Relevant to Health Maintenance Results * Non-gynecologic cytology (08/29/2025 12:00 AM EST) Final Diagnosis A. Urine, Voided, ([id number]): Atypical urothelial cells. Note: Based upon the cytologic findings, UroVysion testing will be performed, the result to follow in an addendum. 09/11/2025 1:14 PM EST [facility] at 1313 EST Specimen A Adequacy Satisfactory for evaluation 09/11/2025 1:14 PM [facility] Clinical Information Benign essential microscopic hematuria R31.1 Urine cytology with reflex UroVysion (AUC/SHGUC) 09/11/2025 1:14 PM [facility] Gross Description A. Urine, Voided, ([id number]): Received is one ThinPrep slide for cytology. 09/11/2025 1:14 PM [facility] Disclaimer Unless otherwise specified, all tissue is 10% NB formalin fixed and paraffin embedded. Technical pathology services provided by [facility] at [address] [facility] [address], [place] [address] (CLIA #[id number]/Roberto Duran MD, Billet Driller) 09/11/2025 1:14 PM [facility] Urine Urine specimen from urethra / Unknown 08/29/2025 08/30/2025 1:35 PM EST us Gokul DESHPANDE LAB CYTOLOGY ORDERABL ES Final Result [facility] [address] [place] [address], * (ABNORMAL) Hepatic function panel (07/21/2025 8:27 AM EDT) Total Protein 7.4 6.0 - 8.0 g/dL LAB CHEMISTRY METHOD 07/21/2025 11:01 AM EDT [facility] Albumin 4.3 3.2 - 5.0 g/dL LAB CHEMISTRY METHOD 07/21/2025 11:01 AM EDT [facility] Total Bilirubin 1.4 0.0 - 1.4 mg/dL LAB CHEMISTRY METHOD 07/21/2025 11:01 AM EDT [facility] Bilirubin, Direct 0.4(H) 0.0 - 0.3 mg/dL LAB CHEMISTRY METHOD 07/21/2025 11:01 AM [facility] Bilirubin, Indirect 1.0 0.0 - 1.1 mg/dL LAB CHEMISTRY METHOD 07/21/2025 11:01 AM [facility] ALT (SGPT) 74(H) 10 - 60 unit/L LAB CHEMISTRY METHOD 07/21/2025 11:01 AM [facility] AST (SGOT) 36 10 - 42 unit/L LAB CHEMISTRY METHOD 07/21/2025 11:01 AM [facility] Alkaline Phosphatase 104 42 - 121 unit/L LAB CHEMISTRY METHOD 07/21/2025 11:01 AM [facility] Blood Venous blood specimen / Unknown Venipuncture / Unknown 07/21/2025 8:27 AM EDT 07/21/2025 8:27 AM EDT Dena Vila OIL RIGGER LAB BLOOD ORDERABLES Final Resu lt [facility] [address] [place] [address], * Basic metabolic panel (07/21/2025 8:27 AM EDT) Sodium 137 133 - 145 mmol/L LAB CHEMISTRY METHOD 07/21/2025 10:51 AM [facility] Potassium 4.4 3.5 - 5.5 mmol/L LAB CHEMISTRY METHOD 07/21/2025 10:51 AM [facility] Chloride 104 96 - 110 mmol/L LAB CHEMISTRY METHOD 07/21/2025 10:51 AM [facility] CO2 28 21 - 32 mmol/L LAB CHEMISTRY METHOD 07/21/2025 10:51 AM [facility] Anion Gap 5 3 - 11 LAB CHEMISTRY METHOD 07/21/2025 10:51 AM EDT [facility] Glucose 100 70 - 100 mg/dL LAB CHEMISTRY METHOD 07/21/2025 10:51 AM T [facility] BUN 12 5 - 25 mg/dL LAB CHEMISTRY METHOD 07/21/2025 10:51 AM [facility] Creatinine 1.03 0.70 - 1.30 mg/dL LAB CHEMISTRY METHOD 07/21/2025 10:51 AM T [facility] eGFR 88 >=60 mL/min/1. 73m2 LAB CHEMISTRY METHOD 07/21/2025 10:51 AM T [facility] Comment:Calculation based on the Chronic Kidney Disease Epidemiology Collaboration (CKD-EPI) equation refit without adjustment for race. BUN/Creatinine Ratio 11.7 LAB CHEMISTRY METHOD 07/21/2025 10:51 AM [facility] Calcium 9.5 8.5 - 10.5 mg/dL LAB CHEMISTRY METHOD 07/21/2025 10:51 AM [facility] Blood Venous blood specimen / Unknown Venipuncture / Unknown 07/21/2025 8:27 AM EDT 07/21/2025 8:27 AM EDT Ke Kimbrough MD LAB BLOOD ORDERA BLES Final Result [facility] [address] [place] [address], * Lipid panel with reflex to direct LDL (07/12/2025 1:23 PM EDT) Cholesterol 126 0 - 200 mg/dL LAB CHEMISTRY METHOD 07/12/2025 4:33 PM EDT [facility] Triglycerides 82 0 - 150 mg/dL LAB CHEMISTRY METHOD 07/12/2025 4:33 PM EDT [facility] HDL 75 >=40 mg/dL LAB CHEMISTRY METHOD 07/12/2025 4:33 PM EDT [facility] LDL Calculated 35 0 - 100 mg/dL LAB CHEMISTRY METHOD 07/12/2025 4:33 PM EDT [facility] Comment:Estimated LDL Calcul ated using equation: Total cholesterol - HDL cholesterol - (Triglycerides/5) VLDL Cholesterol Huey 16.4 mg/dL LAB CHEMISTRY METHOD 07/12/2025 4:33 PM EDT [facility] Non HDL Chol. (LDL+VLDL) 51 <145 mg/dL LAB CHEMISTRY METHOD 07/12/2025 4:33 PM EDT [facility] Chol/HDL Ratio 1.7 0.0 - 4.4 LAB CHEMISTRY METHOD 07/12/2025 4:33 PM EDT [facility] Blood Venous blood specimen / Unknown Venipuncture / Unknown 07/12/2025 1:23 PM EDT 07/12/2025 1:23 PM EDT Ke Kimbrough MD LAB BLOOD ORDERA BLES Final Result [facility] [address] [place] [address], * Hemochromatosis mutation (07/12/2025 1:23 PM EDT) Hereditary Hemochromatosis See Below 07/23/2025 4:36 AM EDT [facility] Comment: RESULT: NEGATIVE Interpretation: DNA testing [...] clinical information reviewed by Alysha Love, PhD, [facility]. DETAILED ASSAY INFORMATION: Hereditary hemochromatosis (HH) [...] variants in the HFE gene, C282Y (NM [id number]: c.845G>A, p.[id number]) and H63D (NM 252619.2: c.187C>G, p.[id number]), that are commonly associated with HH. These [...] Health care providers, please contact your local [facility] genetic counselor or call [phone] ( ) for assistance with the interpretation of these results. This test was developed and its analytical performance characteristics have been determined by [facility]. It has not been cleared or approved by FDA. This assay has been validated pursuant to the CLIA regulations and is used for clinical purposes. For more information, please refer to http://education.[email or web address]/faq/hemochromatosis. (This link is being provided for informational/educational purposes only.) A portion of the testing was performed at [facility]. Reviewed and signed by Laboratory results and submitted clinical information reviewed by Alysha Love, PhD, [facility], Signed on 07/22/2025 at 23:46 Test Performed at: [facility] [address] [place] [address] Corrina Jj MD, PhD, JANAK Blood Venous blood specimen / Unknown Venipuncture / Unknown 07/12/2025 1:23 PM EDT 07/12/2025 1:23 PM EDT Dena Vila NP LAB MOLECULAR DIAGNOSTICS ORDER REMA Final Result [facility] [address] [place] [address] * Hemoglobin A1c (07/12/2025 1:23 PM EDT) Hemoglobin A1C 6.0 <6.5 % LAB CHEMISTRY METHOD 07/12/2025 8:33 PM EDT [facility] Mean Bld Glu Estim. 126 mg/dL LAB CHEMISTRY METHOD 07/12/2025 8:33 PM EDT [facility] Blood Venous blood specimen / Unknown Venipuncture / Unknown 07/12/2025 1:23 PM EDT 07/12/2025 1:23 PM EDT Ke Kimbrough MD LAB BLOOD ORDERA BLES Final Result [facility] [address] [place] [address], * (ABNORMAL) Ferritin (07/12/2025 1:23 PM EDT) Ferritin 677(H) 26 - 388 ng/mL LAB CHEMISTRY METHOD 07/12/2025 4:33 PM EDT [facility] Blood Venous blood specimen / Unknown Venipuncture / Unknown 07/12/2025 1:23 PM EDT 07/12/2025 1:23 PM EDT Ke Kimbrough MD LAB BLOOD ORDERA BLES Final Result Performing Organization Address City/[facility]/ZIP Co de Phone Number [facility] [address] [place] [address], [place] [phone] * Stone analysis (07/11/2025 12:00 AM EDT) Component(s) See below 07/17/2025 10:16 PM EDT [facility] Comment: 30% Calcium oxalate monohydrate (Whewellite) 70% Calcium oxalate dihydrate (Weddellite) Stone Weight 0.0445 g 07/17/2025 10:16 PM EDT [facility] Comment: This test was developed and its performance characteristics determined by [facility] in a manner consistent with CLIA requirements. This test has not been cleared or approved by the U.S. Food and Drug Administration. Test performed at [facility], [address] , [place] [address] Lisbeth Toure MD, PhD - Billet Driller Calculus 07/11/2025 07/11/2025 2:5 8 PM EDT us Gokul DESHPANDE LAB BODY FLUIDS AND S TOOLS ORDERABLES Final Result Performing Organization Address [facility]/ZIP Co de Phone Number [facility] [address] [place] [address] * Hepatitis C antibody (04/11/2025 10:51 AM EDT) Pathologist [facility] Hepatitis C Antibody Negative Negative LAB CHEMISTRY METHOD 04/11/2025 6:58 PM EDT [facility] Blood Venous blood specimen / Unknown Venipuncture / Unknown 04/11/2025 10:51 AM EDT 04/11/2025 10:51 AM EDT us Dena Vila NP LAB BLOOD ORDERABLES Final Resu lt Performing Organization Address City/[facility]/ZIP Co de Phone Number [facility] [address] [place], [place] [address] [phone] * COLONOSCOPY Anesthesia - MAC; [facility] ENDOSCOPY (03/01/2025 12:29 PM EDT) Anatomical Region [...] for surveillance. Narrative 03/01/2025 12:30 PM EDT [facility] Patient Name: Yossi Allen Procedure Date: 03/01/2025 12:10 PM Date of [...] verified by the physician, the nurse, the vice president of manufacturing and the hitch technician in the pre-procedure area in the [...] retroflexion views. 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 All rights reserved. The codes documented in this report are preliminary and upon spice cleaner review may be revised to meet current compliance requirements. Giuliana Flowers MD 03/01/2025 12:30:36 PM This report has been signed electronically.Giuliana Flowers MD Number of Addenda: 0 Note Initiated On: 03/01/2025 12:10 PM Scope Withdrawal Time: 0 hours 11 minutes 54 seconds Scope In: 12:14:27 PM Scope Out: 12:28:24 PM Endoscopy Department at [facility] - [address] [place] [phone] Procedure Note Giuliana Flowers MD - 03/01/2025 [facility] Patient Name: Yossi Allen Procedure Date: 03/01/2025 12:10 PM Date of [...] the physician, the nurse, theanesthetist and the hitch technician in the pre-procedure area in the [...] retroflexion views. 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 All rights reserved. The codes documented in this report are preliminary and upon spice cleaner reviewmay be revised to meet current compliance requirements. Giuliana Flowers MD 03/01/2025 12:30:36 PM This report has been signed electronically.Giuliana Flowers MD Number of Addenda: 0 Note Initiated On: 03/01/2025 12:10 PM Scope Withdrawal Time: 0 hours 11 minutes 54 seconds Scope In: 12:14:27 PM Scope Out: 12:28:24 PM Endoscopy Department at [facility] - [address] [place] [phone] IMPRESSION: - Three diminutive polyps in the [...] Most Recently Relevant to [place] [address] [employer] Advance Directives * Full Code [...] currently active code status orders. Care Teams County Demonstrator Relationship Specialty Start Date End Date Ke Kimbrough MD [address] [place] [address] PCP - General Internal Medicine 05/16/22
--- OUTSIDE RECORDS SUMMARY | 2025-09-12 17:42 | XMS_ITS | Encounter Summary ---
Author Organization [facility] Prior to 07/29/2024 Address [address] [place] [address] Care Team Providers Care Touch Up Worker Name Role Phone Ke Kimbrough MD Primary Care Provider + Encounter Details Date Type Department Care Team Description 01/13/2024 Orders Only Medical Records [address] [place] [address] Gokul Broussard PA-C Social History Tobacco Use Types Packs/Day Years Used Date Smoking Tobacco: Every Day Cigarettes 0.5 Started: 1994 Smokeless Tobacco: Never Comments:0.5-1 pack per day. Alcohol Use Standard Drinks/Week Comments No 0 (1 standard drink = 0.6 oz pur e alcohol) Alcohol Habits Answer Date Recorded How often do you have a drink containing alcohol ? Never 09/06/2020 How many drinks containing a lcohol do you have on a typical day when you are drinking? Not asked How often do you have six or more drinks on one occasion? Not asked Sex Assigned at Date Recorded Not on file Job Start Date Occupation Industry Not on file Not on file Not on file documented as of this encounter Plan of Treatment Not on file documented as of this encounter Procedures Procedure Name Priority Date/Time Associated Diagnosis Comments OUTSIDE CT Routine 01/12/2024 documented in this encounter Results * OUTSIDE CT (01/12/2024) Gokul Broussard PA-C RADIOLOGY documented in this encounter Visit Diagnoses Not on filedocumented in this encounter Care Teams Touch Up Worker Relationship Specialty Start Date End Date Ke Kimbrough MD [address] [place], [place] [phone] PCP - General Internal Medicine 05/16/22 documented as of this encounter
--- OUTSIDE RECORDS SUMMARY | 2025-09-12 17:42 | XMS_ITS | Encounter Summary ---
Author Organization [facility] Prior to 07/29/2024 Address [address] [place] [address] Care Team Providers Care Aviation Technical Systems Specialist Name Role Phone Jj Peñaloza MD Primary Care Provider Digna Whittington MD Primary Care Provider [phone] Ke Kimbrough MD Primary Care Provider + Encounter Details Date Type Department Care Team Description 09/17/2020 Release of Information Medical Records [address] [place] [id number] Abstract, Provider Social History Tobacco Use Types Packs/Day Years Used Date Smoking Tobacco: Every Day Cigarettes 0.5 Smokeless Tobacco: Never Comments:0.5-1 pack per day. [...] file Not on file Not on file COVID-19 Exposure Response Date Recorded In the last month, have you been in contact with someone who was confirmed or suspected to have Coronavirus / COVID-19? No / Unsure 09/06/2020 8:57 AM EST documented as of this encounter Plan of Treatment Not on file documented as of this encounter Visit Diagnoses Not on filedocumented in this encounter Care Teams Aviation Technical Systems Specialist Relationship Specialty Start Date End Date Jj Peñaloza MD PCP - General Internal Medicine 06/27/20 02/28/21 Digna Orozco MD [address] [place] [id number] PCP - General Internal Medicine 03/01/21 05/15/22 Ke Kimbrough MD [address] [place] [address] PCP - General Internal Medicine 05/16/22 documented as of this encounter
--- OUTSIDE RECORDS SUMMARY | 2025-09-12 17:42 | XMS_ITS | Encounter Summary ---
Author Organization [facility] Address [address] [place] [address] Care Team Providers Care Cart Pusher Name Role Phone Ke Kimbrough MD Primary Care Pr ovider Encounter Details Date Type Department Care Team (Late st Contact Info) Description 07/12/2025 Results Follow-Up Adult Medicine [address] [phone] Ke Kimbrough MD [address] [place], [place] Social History Tobacco Use Types Packs/Day [...] for your loved ones. For example, child and family services specialist or elderly care for an older adult? [...] 10/03/2025 1:00 PM EST Office Visit [facility] Hematology Oncology [address] [place] [phone] May Vasquez PA [address] [place] [address] 10/12/2025 11:30 AM EST Office Visit Adult Medicine [address] [phone] Carlee Villar PA [address] [place] [address] documented as of this encounter Visit Diagnoses Not on filedocumented in this encounter Additional Health Concerns Assessment Noted Time PHQ-9 Depression Total Score: 0 01/02/20 25 8:27 PM EDT documented as of this encounter Care Teams Cart Pusher Relationship Specialty Start Date End Date Ke Kimbrough MD [address] [facility] [place] PCP - General Internal Medicine 05/16/22 documented as of this encounter
--- OUTSIDE RECORDS SUMMARY | 2025-09-12 17:42 | XMS_ITS | Encounter Summary ---
Author Organization [facility] Prior to 07/29/2024 Address [address] [place] [address] Care Team Providers Care Strategic Marketing Specialist Name Role Phone Ke Kimbrough MD Primary Care Provider + Encounter Details Date Type Department Care Team Description 04/22/2023 Orders Only Adult Medicine [facility] [address] [place] [address] Ke Kimbrough MD [address] [place] [phone] Numbness in both hands Social History Tobacco Use Types Packs/Day Years [...] Procedure Name Priority Date/Time Associated Diagnosis Comments EMG INTERNAL/EXTERNAL Routine 04/21/2023 Numbness in both hands documented in this encounter Results * EMG INTERNAL/EXTERNAL (04/21/2023) Oyinkansola Ogundipe MD PHYSIATRY documented in this encounter Visit Diagnoses Diagnosis Numbness in both hands Disturbance of skin sensation documented in this encounter Care Teams Strategic Marketing Specialist Relationship Specialty Start Date End Date Ke Kimbrough MD [address] [place] [id number] PCP - General Internal Medicine 05/16/22 documented as of this encounter
--- OUTSIDE RECORDS SUMMARY | 2025-09-12 17:42 | XMS_ITS | Encounter Summary ---
Author Organization [facility] Address [address] [place] [address] Care Team Providers Care Steel Fixer Name Role Phone Ke Kimbrough MD Primary Care Pr ovider Encounter Details Date Type Department Care Team (Late st Contact Info) Description 07/11/2025 Lab Requisition [facility] - Main Lab [address] [facility] [place] [address] Gokul Broussard, JERAMY [address] [place] [phone] Calculus of kidney Social History Tobacco Use [...] for your loved ones. For example, child daycare worker or elderly care for an older adult? [...] 10/03/2025 1:00 PM EST Office Visit [facility] Hematology Oncology [address] [place] [address] May Vasquez PA [address] [place] [address] 10/12/2025 11:30 AM EST Office Visit Adult Medicine [address] [phone] Carlee Villar PA [address] [place] [address] documented as of this encounter Procedures Procedure Name Priority Date/Time Associated Diagnosis Comments STONE ANALYSIS Routine 07/11/2025 12:00 AM EDT Calculus of kidney documented in this encounter Results * Stone analysis (07/11/2025 12:00 AM EDT) Component(s) See below 07/17/2025 10:16 PM EDT [facility] Comment: 30% Calcium oxalate monohydrate (Whewellite) 70% Calcium oxalate dihydrate (Weddellite) Stone Weight 0.0445 g 07/17/2025 10:16 PM EDT [facility] Comment: This test was developed and its performance characteristics determined by [facility] in a manner consistent with CLIA requirements. This test has not been cleared or approved by the U.S. Food and Drug Administration. Test performed at [facility], [address] , [place] [address] Lisbeth Toure MD, PhD - Environmental Services Lead Calculus 07/11/2025 07/11/2025 2:5 8 PM EDT us Gokul DESHPANDE LAB BODY FLUIDS AND S TOOLS ORDERABLES Final Result [facility] [address] [place], [place] [id number] documented in this encounter Visit Diagnoses Diagnosis Calculus of kidney documented in this encounter Additional Health Concerns Assessment Noted Time PHQ-9 Depression Total Score: 0 01/02/20 25 8:27 PM EDT documented as of this encounter Care Teams Steel Fixer Relationship Specialty Start Date End Date Ogundipe, Oyinkansola Oyenike, MD [address] [place] [address] PCP - General Internal Medicine 05/16/22 documented as of this encounter
--- OUTSIDE RECORDS SUMMARY | 2025-09-12 17:42 | XMS_ITS | Clinical Summary ---
Author Organization [facility] Prior to 07/29/2024 Address [address] [place] [address] Care Team Providers Care Pattern Finisher Name Role Phone Ke Kimbrough MD Primary Care Provider + Allergies No known active allergies Medications Medication Sig Dispensed Refills Start Date End Date Status Aspirin 81 MG Cap Take by mouth daily. 0 Active Ascorbic Acid (VITAMIN C CR OR) Take by mouth daily. 0 Active Misc. Devices (Wrist Brace) MiscIndications:Numbne ss in both hands 1 Each by Does not apply route at bedtime. 2 Each 0 01/19/2023 Active nicotine polacrilex (NICORETTE) 4 MG gumIndications:Tobacco use disorder, mild, in early remission Take 4 mg by mouth every 4 hours as needed for Smoking cessation. 200 Each 1 04/28/2024 Active gabapentin (NEURONTIN) 300 MG capsule TAKE 1 CAPSULE BY MOUTH EVERYDAY AT BEDTIME 90 Capsule 1 06/27/2024 Active amlodipine (NORVASC) 5 MG tabletIndications:Esse ntial hypertension Take 1 Tablet by mouth daily. 90 Tablet 1 07/21/2024 Active atorvastatin (LIPITOR) 20 MG tabletIndications:Hype rlipidemia, unspecified hyperlipidemia type Take 1 Tablet by mouth daily. 90 Tablet 1 07/21/2024 Active Cholecalciferol (Vitamin D) 50 MCG (1999) Cap Take 1 Capsule by mouth daily. 90 Capsule 3 07/21/2024 Active Active Problems Problem Noted Date Hepatic steatosis 04/28/2024 Vitamin D insufficiency 04/28/2024 Prediabetes 01/20/2023 Tobacco use disorder, mild, in early rem ission 01/19/2023 Hyperlipidemia 07/22/2022 Kidney stones 05/10/2021 Essential hypertension 09/06/2020 Immunizations Name Administration Dates Next Due COVID-19 (Moderna) 09/16/2021,03/05/2021, 021 Influenza Flu (PT Reported) 07/14/2022 Influenza Vaccine-quadrivale nt 4 Years Plus 07/15/2023,07/16/2022,06/25/2021, 020 Tdap 11/20/2019 Family History Medical History Relation Name Comments Stroke Brother 1 Stroke Brother 2 Hypertension Father Stroke Father Kidney Stones Maternal Grandfather Hypertension Mother Relation Name Status Comments Brother 1 Alive Brother 2 Alive Brother 3 Alive Brother 4 Alive Brother 5 Alive Father Alive Maternal Grandfather Maternal Grandmother Mother Alive Paternal Grandfather Paternal Grandmother Sister 1 Alive Sister 2 Alive Social History Tobacco Use Types Packs/Day Years Used Date Smoking Tobacco: Every Day Cigarettes 0.5 Started: 1994 Smokeless Tobacco: Never Tobacco Cessation:Ready to Q uit: Not Asked; Counseling Given: Not Answered Comments:0.5-1 pack per day. Alcohol Use Standard [...] file Not on file Not on file Last Filed Vital Signs Vital Sign Reading Time Taken Comments Blood Pressure 130/85 04/28/2024 9:43 AM EDT Pulse 89 04/28/2024 9:43 AM EDT Temperature 36.9 C (98.5 F) 04/28/2024 9:43 AM EDT Respiratory Rate 18 04/28/2024 9:43 AM EDT Oxygen Saturation 98% 07/21/2022 10:28 AM EDT Inhaled Oxygen Concentration - - Weight 95.3 kg (210 lb) 04/28/2024 9:43 AM EDT Height 170.2 cm (5' 7 ) 04/28/2024 9:43 AM EDT Body Mass Index 32.89 04/28/2024 9:43 AM EDT Plan of Treatment Health Maintenance Due Date Last Done Comments BMI CHECK/ADVISE 09/28/2024 04/28/2024, , 09/08/2022, Additional history exists COLON CANCER SCREENING 2025 SHINGLES VACCINE (1 of 2) 2025 BASELINE HEALTH EXAM 40-64 05/27/202505/27, 05/27/2023, 01/07/2021 Covid-19 Vaccine (4 - 2022-2 4 season) 2025 09/16/2021, 03/05/2021, 02/05/2021 INFLUENZA (#1) 2025 07/15/2023, 06/28, 07/14/2022, Additional history exists TOBACCO CHECK/ADVISE 07/20/2026 07/20/2024, 06/23/2024, 04/28/2024, Additional history exists CHOLESTEROL SCREENING 04/27/2029 04/27/2024 , 10/29/2023, 01/20/2023, Additional history exists DTAP/TDAP/TD (2 - Td or Tdap) 11/20/2029 11/20/2019 PNEUMOCOCCAL VACCINE FOR HIG H RISK PATIENTS (#1) 02/09/2040 Care Teams Pattern Finisher Relationship Specialty Start Date End Date Ke Kimbrough MD [address] [place] [id number] PCP - General Internal Medicine 05/16/22
--- OUTSIDE RECORDS SUMMARY | 2025-09-12 17:42 | XMS_ITS | Encounter Summary ---
Author Organization [facility] Address [address] [place] [address] Care Team Providers Care Library Technology Instructor Name Role Phone Ke Kimbrough MD Primary Care Pr ovider Encounter Details Date Type Department Care Team ([facility] Contact Info) Description 07/24/2025 Results Follow-Up Gastroenterology - [place] [address] [facility] [address] [facility] [address] [place] [phone] Dena Vila, FLOR[place] [address] [facility] [address] [place] [address] Social History Tobacco Use Types Packs/Day Years [...] care for your loved ones. 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 [...] Description 10/03/2025 1:00 PM EST Office Visit [facility] Hematology Oncology [address] [place] [address] May Vasquez PA [address] [place] [address] 10/12/2025 11:30 AM EST Office Visit Adult Medicine [address] [phone] Carlee Villar PA [address] [place] [address] documented as of this encounter Visit Diagnoses Not on filedocumented in this encounter Additional Health Concerns Assessment Noted Time PHQ-9 Depression Total Score: 0 01/02/20 25 8:27 PM EDT documented as of this encounter Care Teams Library Technology Instructor Relationship Specialty Start Date End Date Ke Kimbrough MD [address] [place], [place] PCP - General Internal Medicine 05/16/22 documented as of this encounter
== END 2025-09-12 13:40 | disposition home or self-care (01) ==
LOC: HO.NEURO 13:39
PROVIDERS: PCP Family Medicine; Visit Provider Psychiatry & Neurology Neurology
DX: G62.89 Other specified polyneuropathies (principal)
CPT/HCPCS: 95886; 95913

== ENCOUNTER → 2025-09-12 14:09 | Outpatient (BNV) | payer OTHER, SELFPAY | PROVIDERS: PCP Family Medicine; Visit Provider Psychiatry & Neurology Neurology | DX: G57.81 Other specified mononeuropathies of right lower limb (principal) | CPT/HCPCS: 95886; 95910 ==